=== PATIENT | male | born 1945 | race African-American/Black ===

== ENCOUNTER 2018-11-10 21:33 | Emergency (ER) | payer OTHER ==
[2018-11-10] MEDS ORDERED: MEPERIDINE HCL 25 MG/0.5 ML ONE (22:20)
[2018-11-10] MEDS ORDERED: LEVALBUTEROL 1.25 MG/3 ML NEB ONE (22:20)
[2018-11-10 22:53] LABS: Absolute Lymphocytes (CBC) 1.8 K/uL (0.7-4.9); Basophils % 0.3 % (0-1.3); Hematocrit 27.5 % (39.6-49.0); MPV 9.4 fL (7.6-11.3); RBC Red Blood Cell Count 2.97 M/uL (4.33-5.43)
[2018-11-10 23:06] LABS: BUN Blood Urea Nitrogen 50 mg/dL (7-18); Bicarbonate 28 mmol/L (21-32); Glucose Level 127 mg/dL (74-106); NT PRO-BNP 596 pg/mL (<450); Potassium 4.3 mmol/L (3.5-5.1); Sodium Level 140 mmol/L (136-145); Troponin (Emerg Dept Use Only) < 0.02 ng/mL (0.0-0.045)
--- NOTE | 2018-11-11 00:04 | ER ---
Nurse's Notes [facility] Name: Haja Fenton Age: 73 yrs Sex: Male : 1945 Arrival Date: 11/10/2018 Time: 21:36 Bed 14 Private MD: Diagnosis: Chest pain, unspecified;Pleurisy Presentation: 11/10 21:46 Presenting complaint: Patient states: chest pain started yesterday, pain in left chest dm5 area, 6/10 when resting, 10/10 when trying to stand up. pt denies nausea and vomiting. states that the pain almost brought the patient to his knees earlier when the patient went to stand up. Pt has had a cough for [address] Landaverde Sunday. Presenting complaint:. Transition of care: patient was not received from another setting of care. Onset of symptoms was November 09, 2018. Risk Assessment: Do you want to hurt yourself or someone else? Patient reports no desire to harm self or others. Initial Sepsis Screen: Does the patient meet any 2 criteria? No. Patient's initial sepsis screen is negative. Does the patient have a suspected source of infection? No. Patient's initial sepsis screen is negative. Care prior to arrival: None. 21:46 Method Of Arrival: Ambulatory dm5 21:46 Acuity: BERNADINE 2 dm5 Historical: - Allergies: 21:52 Sulfa (Sulfonamide Antibiotics); dm5 - Home Meds: 22:13 losartan 50 mg oral tab 1 tab 2 times per day [Active]; nifedipine 60 mg oral TbER 1 dm5 tab twice a day [Active]; hydralazine 100 mg oral tab 1 tab 3 times per day [Active]; omeprazole 20 mg Oral cpDR 1 cap 2 times per day [Active]; furosemide 80 mg Oral tab 1 tab 2 times per day [Active]; aspirin 81 mg Oral TbEC 1 tab once daily [Active]; alogliptin 6.25 mg oral tab 1 tab daily [Active]; terazosin 10 mg oral cap 1 cap twice a day [Active]; atorvastatin 20 mg oral tab 1 tab once daily [Active]; Vitamin D Oral 5000 unit daily [Active]; ferrous gluconate 325 mg (37 mg iron) oral tab daily [Active]; Phenergan Oral every 6 hours [Active]; amoxicillin 875 mg Oral tab 1 tab every 12 hours [Active]; - PMHx: 21:52 Hypertension; Diabetes - NIDDM; GERD; Hyperlipidemia; dm5 - PSHx: 21:52 None; dm5 - Immunization history:: Adult Immunizations up to date. - Social history:: Smoking status: Patient/guardian denies using tobacco. - Family history:: not pertinent. - Ebola Screening: : Patient negative for fever greater than or equal to 101.5 degrees Fahrenheit, and additional compatible Ebola Virus Disease symptoms Patient denies exposure to infectious person Patient denies travel to an Ebola-affected area in the 21 days before illness onset No symptoms or risks identified at this time. - Hospitalizations: : No recent hospitalization is reported. Screenin:10 Abuse screen: Denies threats or abuse. Denies injuries from another. Nutritional ca1 screening: No deficits noted. Tuberculosis screening: No symptoms or risk factors identified. Fall Risk IV access (20 points). Assessment: 22:10 General: Appears in no apparent distress. uncomfortable, Behavior is calm, cooperative, ca1 appropriate for age. Pain: Complains of pain in anterior aspect of left upper chest Pain does not radiate. Pain currently is 8 out of 10 on a pain scale. Quality of pain is described as sharp, stabbing, Pain began 1 day ago. Is intermittent, Aggravated by. Neuro: Level of Consciousness is awake, alert, obeys commands, Oriented to person, place, time, situation, Appropriate for age. Cardiovascular: Heart tones S1 S2 present Capillary refill < 3 seconds Patient's skin is warm and dry. Pulses are all present. Rhythm is sinus rhythm. Respiratory: Airway is patent Respiratory effort is even, unlabored, Respiratory pattern is regular, symmetrical, Breath sounds are clear bilaterally. Respiratory: Reports cough that is. GI: Abdomen is round non-distended, Bowel sounds present X 4 quads. Abd is soft and non tender X 4 quads. : No deficits noted. No signs and/or symptoms were reported regarding the genitourinary system. EENT: EENT: No deficits noted. No signs and/or symptoms were reported regarding the EENT system. Derm: Skin is intact, is healthy with good turgor, Skin is pink, warm \T\ dry. Musculoskeletal: Circulation, motion, and sensation intact. Capillary refill < 3 seconds, Range of motion: intact in all extremities. 23:20 Reassessment: Patient appears in no apparent distress at this time. Patient and/or ca1 family updated on plan of care and expected duration. Pain level reassessed. Patient is alert, oriented x 3, equal unlabored respirations, skin warm/dry/pink. 11/11 00:20 Reassessment: Patient appears in no apparent distress at this time. Patient and/or cc3 family updated on plan of care and expected duration. Pain level reassessed. Patient is alert, oriented x 3, equal unlabored respirations, skin warm/dry/pink. Dr. Adams discharged the patient home with prescription given. IV cannula removed and patient left ER vitally stable and ambulatory with his . No valuables left in the patient's room. Patient denies pain at this time. Patient states feeling better. Patient states symptoms have improved. Vital Signs: 11/10 21:52 BP 161 / 74; Pulse 67; Resp 20; Temp 99(TE); Pulse Ox 97% on R/A; Weight 104.33 kg; dm5 Height 6 ft. (182.88 cm); Pain 6/10; 23:20 BP 143 / 66; Pulse 57; Resp 15 S; Pulse Ox 94% on R/A; ca1 11/11 00:16 BP 145 / 69; Pulse 64; Resp 15 S; Pulse Ox 96% on R/A; Pain 0/10; cc3 11/10 21:52 Body Mass Index 31.19 (104.33 kg, 182.88 cm) dm5 ED Course: 11/10 21:36 Patient arrived in ED. cf2 21:49 Triage completed. dm5 21:52 Arm band placed on left wrist. Patient placed in an exam room. dm5 21:53 Kerry Sandoval, RN is Primary Nurse. ca1 21:53 Bc Adams MD is Attending Physician. rn 22:10 Patient has correct armband on for positive identification. Placed in gown. Bed in low ca1 position. Call light in reach. Side rails up X2. threat monitoring analyst on. Pulse ox on. NIBP on. Warm blanket given. Head of bed elevated. 22:11 No provider procedures requiring assistance completed. Inserted saline lock: 20 gauge ca1 in left antecubital area, using aseptic technique. Blood collected. Patient maintains SpO2 saturation greater than 95% on room air. 22:11 Initial lab(s) drawn, by me, sent to lab. First set of blood cultures drawn by me. ca1 22:30 EKG done, by ED staff, reviewed by Bc Adams MD. em1 11/11 00:20 IV discontinued, intact, bleeding controlled, No redness/swelling at site. Pressure cc3 dressing applied. 05:13 XRAY Chest Pa And Lat (2 Views) In Process Unspecified. EDMS Administered Medications: 11/10 22:13 Drug: Xopenex 1.25 mg Route: Inhalation; ca1 11/11 00:16 Follow up: Response: No adverse reaction; Marked relief of symptoms cc3 11/10 22:14 Drug: Demerol 25 mg {Note: RASS - 0.} Route: IVP; Site: left antecubital; ca1 11/11 00:16 Follow up: Response: No adverse reaction; Pain is decreased; RASS: Alert and Calm (0) cc3 Outcome: 00:01 Discharge ordered by . rn 00:20 Discharged to home ambulatory, with family. cc3 00:20 Condition: stable 00:20 Discharge instructions given to patient, family, Instructed on discharge instructions, follow up and referral plans. medication usage, Demonstrated understanding of instructions, follow-up care, medications, Prescriptions given X 1. 00:25 Patient left the ED. cc3 Signatures: Dispatcher [employer] EDMS Bambi Gutierrez, RN RN dm5 Bc Adams MD MD rn Martinez, Eric em1 Lea Wharton cc3 Kerry Sandoval RN RN ca1 Eugenio Louis cf2 Corrections: (The following items were deleted from the chart) 11/10 22:13 21:52 Home Meds: losartan oral oral; dm5 dm5 22:13 21:52 Home Meds: Nifedipine Oral; dm5 dm5 22:13 21:52 Home Meds: Hydralazine Oral; dm5 dm5
--- NOTE | 2018-11-11 00:06 | EDPHYS ---
Physician Documentation [facility] Name: Haja Fenton Age: 73 yrs Sex: Male : 1945 Arrival Date: 11/10/2018 Time: 21:36 Bed 14 Private MD: ED Physician Bc Adams HPI: 11/10 22:49 This 73 yrs old Black Male presents to ER via Ambulatory with complaints of Chest Pain. rn 22:49 The patient or guardian reports chest pain that is located primarily in the anterior rn chest wall, left. Onset: today. The pain does not radiate. Associated signs and symptoms: Pertinent positives: cough, Pertinent negatives: abdominal pain, palpitations, shortness of breath, syncope, vomiting. The chest pain is described as sharp, stabbing. Duration: The patient or guardian reports multiple episodes, that are intermittent. Modifying factors: The symptoms are alleviated by nothing. the symptoms are aggravated by cough, deep breath. Severity of pain: At its worst the pain was moderate in the emergency department the pain is unchanged. The patient has not experienced similar symptoms in the past. REports seen by pcp recently, given abx, states still coughing and today began with left sided sharp chest pain, no radiation, worse with deep breath, no hemoptysis. . Historical: - Allergies: 21:52 Sulfa (Sulfonamide Antibiotics); dm5 - Home Meds: 22:13 losartan 50 mg oral tab 1 tab 2 times per day [Active]; nifedipine 60 mg oral TbER 1 dm5 tab twice a day [Active]; hydralazine 100 mg oral tab 1 tab 3 times per day [Active]; omeprazole 20 mg Oral cpDR 1 cap 2 times per day [Active]; furosemide 80 mg Oral tab 1 tab 2 times per day [Active]; aspirin 81 mg Oral TbEC 1 tab once daily [Active]; alogliptin 6.25 mg oral tab 1 tab daily [Active]; terazosin 10 mg oral cap 1 cap twice a day [Active]; atorvastatin 20 mg oral tab 1 tab once daily [Active]; Vitamin D Oral 5000 unit daily [Active]; ferrous gluconate 325 mg (37 mg iron) oral tab daily [Active]; Phenergan Oral every 6 hours [Active]; amoxicillin 875 mg Oral tab 1 tab every 12 hours [Active]; - PMHx: 21:52 Hypertension; Diabetes - NIDDM; GERD; Hyperlipidemia; dm5 - PSHx: 21:52 None; dm5 - Immunization history:: Adult Immunizations up to date. - Social history:: Smoking status: Patient/guardian denies using tobacco. - Family history:: not pertinent. - Ebola Screening: : Patient negative for fever greater than or equal to 101.5 degrees Fahrenheit, and additional compatible Ebola Virus Disease symptoms Patient denies exposure to infectious person Patient denies travel to an Ebola-affected area in the 21 days before illness onset No symptoms or risks identified at this time. - Hospitalizations: : No recent hospitalization is reported. ROS: 22:49 Constitutional: Negative for fever, chills, and weight loss, Eyes: Negative for injury, rn pain, redness, and discharge, Neck: Negative for injury, pain, and swelling, Cardiovascular: + chest pain Respiratory: + cough and pleuritic chest pain Abdomen/GI: Negative for abdominal pain, nausea, vomiting, diarrhea, and constipation, MS/Extremity: Negative for injury and deformity, Skin: Negative for injury, rash, and discoloration, Neuro: Negative for headache, weakness, numbness, tingling, and seizure. Exam: 22:49 Constitutional: This is a well developed, well nourished patient who is awake, alert, rn and in no acute distress. Head/Face: Normocephalic, atraumatic. Eyes: Pupils equal round and reactive to light, extra-ocular motions intact. Lids and lashes normal. Conjunctiva and sclera are non-icteric and not injected. Cornea within normal limits. Periorbital areas with no swelling, redness, or edema. Cardiovascular: Regular rate and rhythm. No pulse deficits. Respiratory: Lungs have equal breath sounds bilaterally, no retractions, + splinting and diminished breath sounds left lung base Abdomen/GI: soft, non-tender MS/ Extremity: Pulses equal, no cyanosis. Neurovascular intact. Full, normal range of motion. Equal circumference. Neuro: Awake and alert, GCS 15, oriented to person, place, time, and situation. Cranial nerves II-XII grossly intact. Motor strength 5/5 in all extremities. Sensory grossly intact. Cerebellar exam normal. Normal gait. Vital Signs: 21:52 BP 161 / 74; Pulse 67; Resp 20; Temp 99(TE); Pulse Ox 97% on R/A; Weight 104.33 kg; dm5 Height 6 ft. (182.88 cm); Pain 6/10; 23:20 BP 143 / 66; Pulse 57; Resp 15 S; Pulse Ox 94% on R/A; ca1 11/11 00:16 BP 145 / 69; Pulse 64; Resp 15 S; Pulse Ox 96% on R/A; Pain 0/10; cc3 11/10 21:52 Body Mass Index 31.19 (104.33 kg, 182.88 cm) dm5 MDM: 11/10 21:53 Patient medically screened. rn 23:55 ED course: Family reports grandchildren with cough and illness, then got it, now rn patient go it. Seems respiratory, already on abx, may not be improving given likely viral illness. No PTX on CXR, chest pain likely pleuritic. . 23:59 Differential diagnosis: acute pericarditis, chest wall pain, costochondritis, pleurisy, rn pneumonia, pneumothorax. Data reviewed: vital signs, nurses notes, lab test result(s), EKG, radiologic studies, plain films, and as a result, I will discharge patient. Test interpretation: by ED physician or midlevel provider: ECG, plain radiologic studies, CXR neg for pneumothorax or acute infiltrate.. Counseling: I had a detailed discussion with the patient and/or guardian regarding: the historical points, exam findings, and any diagnostic results supporting the discharge/admit diagnosis, lab results, radiology results, the need for outpatient follow up, to return to the emergency department if symptoms worsen or persist or if there are any questions or concerns that arise at home. Response to treatment: the patient's symptoms have mildly improved after treatment, and as a result, I will discharge patient. Special discussion: Based on the patient's history, exam, and Dx evaluation, there is no indication for emergent intervention or inpatient Tx. It is understood by the patient/guardian that if the Sx's persist or worsen they need to return immediately for re-evaluation. I discussed with the patient/guardian in detail that at this point there is no indication for admission to the hospital. It is understood, however, that if the symptoms persist or worsen the patient needs to return immediately for re-evaluation. 11/10 22:06 Order name: CBC with Diff rn 11/10 22:06 Order name: Blood Culture Adult (2) rn 11/10 22:06 Order name: BMP rn 11/10 22:06 Order name: NT PRO-BNP rn 11/10 22:06 Order name: Troponin (emerg Dept Use Only) rn 11/10 22:06 Order name: Flu rn 11/10 22:06 Order name: XRAY Chest Pa And Lat (2 Views) rn 11/10 22:59 Order name: CBC with Automated Diff; Complete Time: 23:35 EDMS 11/10 23:03 Order name: Influenza Screen (A ; Complete Time: 23:35 EDMS 11/10 23:07 Order name: Basic Metabolic Panel; Complete Time: 23:35 EDMS 11/10 23:07 Order name: Troponin (Emerg Dept Use Only); Complete Time: 23:35 EDMS 11/10 23:07 Order name: NT PRO-BNP; Complete Time: 23:35 EDMS 11/10 22:06 Order name: IV Start; Complete Time: 22:34 rn 11/10 22:06 Order name: EKG; Complete Time: 22:09 11/10 22:06 Order name: Cardiac monitoring; Complete Time: 22:11 rn 11/10 22:06 Order name: EKG - Nurse/Tech; Complete Time: 22:29 rn 11/10 22:06 Order name: Labs collected and sent; Complete Time: 22:11 11/10 22:06 Order name: O2 Per Protocol; Complete Time: 22:11 11/10 22:06 Order name: O2 Sat Monitoring; Complete Time: 22:35 rn Administered Medications: 22:13 Drug: Xopenex 1.25 mg Route: Inhalation; ca1 11/11 00:16 Follow up: Response: No adverse reaction; Marked relief of symptoms cc3 11/10 22:14 Drug: Demerol 25 mg {Note: RASS - 0.} Route: IVP; Site: left antecubital; ca1 11/11 00:16 Follow up: Response: No adverse reaction; Pain is decreased; RASS: Alert and Calm (0) cc3 Disposition: 11/11/18 00:01 Discharged to Home. Impression: Chest pain, unspecified, Pleurisy. - Condition is Stable. - Discharge Instructions: Nonspecific Chest Pain, Pleurisy. - Prescriptions for Ultram 50 mg Oral Tablet - take 1 tablet by ORAL route every 6 hours As needed; 20 tablet. - Medication Reconciliation Form, Thank You Letter, Antibiotic Education, Prescription Opioid Use form. - Follow up: Private Physician; When: As needed; Reason: Recheck today's complaints, Re-evaluation by your physician. - Problem is new. - Symptoms have improved. Signatures: Dispatcher [employer] EDBambi Lindsay RN RN dm5 Bc Adams MD MD rn Cordel, Charlene cc3 Kerry Sandoval RN RN ca1 Corrections: (The following items were deleted from the chart) 11/10 22:13 21:52 Home Meds: losartan oral oral; dm5 dm5 22:13 21:52 Home Meds: Nifedipine Oral; dm5 dm5 22:13 21:52 Home Meds: Hydralazine Oral; dm5 dm5 11/11 00:25 00:01 11/11/2018 00:01 Discharged to Home. Impression: Chest pain, unspecified; cc3 Pleurisy. Condition is Stable. Forms are Medication Reconciliation Form, Thank You Letter, Antibiotic Education, Prescription Opioid Use. Follow up: Private Physician; When: As needed; Reason: Recheck today's complaints, Re-evaluation by your physician. Problem is new. Symptoms have improved. rn
[2018-11-11 00:58] VITALS: TEMP 99
[2018-11-11 01:00] VITALS: BP 143/66; O2SAT 94
--- NOTE | 2018-11-11 08:43 | RAD REPORT ---
EXAM DESCRIPTION: Chang Antonio (2 Views)11/10/2018 10:50 pm CLINICAL HISTORY: Chest pain COMPARISON: August 2017 FINDINGS: The lungs appear clear of acute infiltrate. The heart is mildly enlarged IMPRESSION: No acute abnormalities displayed
--- NOTE | 2018-11-11 11:33 | EKG ---
Test Date: 2018-11-10 Test Time: 22:22:12 Investigation Manager: MEASUREMENT RESULTS: Intervals: Rate: 68 CT: 162 QRSD: 92 QT: 404 QTc: 429 [place]: P: 48 CT: 162 QRS: -47 T: 32 INTERPRETIVE STATEMENTS: Sinus rhythm with occasional premature ventricular complexes Left anterior fascicular block Cannot rule out Inferior infarct, age undetermined Possible Anterior infarct, age undetermined Abnormal ECG Compared to ECG 02/16/2017 10:24:28 Ventricular premature complex(es) now present Left anterior fascicular block now present Fusion complex(es) no longer present Left-axis deviation no longer present Myocardial infarct finding still present Electronically Signed On 11-11-18 11:30:48 CDT by Eyad Todd
== END 2018-11-11 00:25 | disposition home or self-care (01) ==
LOC: ER 21:33
DX: R09.1 Pleurisy (principal); I10 Essential (primary) hypertension; E11.9 Type 2 diabetes mellitus without complications; E78.5 Hyperlipidemia, unspecified; Z79.82 Long term (current) use of aspirin; Z88.2 Allergy status to sulfonamides
CPT/HCPCS: 93005; 87040 ×2; 85025; 80048; 36415; 84484; 83880; 87804 ×2; 71046; 96374; 99285; J2175

== ENCOUNTER 2020-12-15 08:11 | Day surgery (SDC) | payer OTHER ==
[2020-12-15 08:31] VITALS: BP 144/37; TEMP 98.4; O2SAT 97; BMI 30.5
[2020-12-15 09:00] LABS: Hematocrit 21.7 % (39.6-49.0)
[2020-12-15] MEDS ORDERED: EPOETIN ALFA-EPBX 10,000 UNIT/ML VIAL ONE (09:31)
[2020-12-15 10:28] LABS: Ferritin 385.9 ng/mL (26-388); Folic Acid, (Folate) 8.4 ng/mL (3.1-17.5)
== END 2020-12-15 09:11 | disposition home or self-care (01) ==
LOC: DS 08:11
PROVIDERS: ATTEND Internal Medicine Nephrology
DX: N18.4 Chronic kidney disease, stage 4 (severe) (principal); D63.1 Anemia in chronic kidney disease
CPT/HCPCS: 36415; 85018; 85014; 82728; 82746; 82607; 83540; 84466; 96372; Q5106

== ENCOUNTER → 2021-01-24 | Day surgery (SDC) | payer OTHER ==
[~2021-01-24] MED LIST: EPOETIN ALFA-EPBX 10,000 UNIT/ML VIAL ONE
[2021-01-24 08:32] VITALS: BP 151/57; TEMP 97.4; O2SAT 99; BMI 30.5
== END ==
LOC: DS 07:59
PROVIDERS: ATTEND Internal Medicine Nephrology
DX: N18.4 Chronic kidney disease, stage 4 (severe) (principal); D63.1 Anemia in chronic kidney disease
CPT/HCPCS: 36415; 85018; 85014; 96372; Q5106

== ENCOUNTER 2021-02-23 07:59 | Day surgery (SDC) | payer OTHER ==
[2021-02-23 08:31] VITALS: BMI 30.5
[2021-02-23 08:32] VITALS: BP 152/62; TEMP 97.8; O2SAT 97
[2021-02-23 08:46] LABS: Hematocrit 23.9 % (39.6-49.0)
[2021-02-23] MEDS ORDERED: EPOETIN ALFA-EPBX 10,000 UNIT/ML VIAL ONE (08:51)
== END 2021-02-23 09:00 | disposition home or self-care (01) ==
LOC: DS 07:59
PROVIDERS: ATTEND Internal Medicine Nephrology
DX: N18.4 Chronic kidney disease, stage 4 (severe) (principal); D63.1 Anemia in chronic kidney disease
CPT/HCPCS: 36415; 85018; 85014; 96372; Q5106

== ENCOUNTER 2021-03-28 08:01 | Day surgery (SDC) | payer OTHER ==
[2021-03-28 08:22] VITALS: TEMP 97.6; O2SAT 99; BMI 30.5
[2021-03-28] MEDS ORDERED: EPOETIN ALFA-EPBX 10,000 UNIT/ML VIAL ONE (08:37)
[2021-03-28 08:49] VITALS: BP 162/65
== END 2021-03-28 08:47 | disposition home or self-care (01) ==
LOC: DS 08:01
PROVIDERS: ATTEND Internal Medicine Nephrology
DX: N18.4 Chronic kidney disease, stage 4 (severe) (principal); D63.1 Anemia in chronic kidney disease
CPT/HCPCS: 36415; 85018; 85014; 96372; Q5106

== ENCOUNTER 2021-04-11 07:29 | Day surgery (SDC) | payer OTHER ==
[2021-04-11 08:06] LABS: Hematocrit 22.9 % (39.6-49.0)
[2021-04-11] MEDS ORDERED: EPOETIN ALFA-EPBX 10,000 UNIT/ML VIAL ONE (08:26)
[2021-04-11 08:42] VITALS: O2SAT 99; BMI 30.5
[2021-04-25] MEDS ORDERED: EPOETIN ALFA-EPBX 10,000 UNIT/ML VIAL ONE (08:15)
[2021-04-25 08:22] VITALS: BP 171/61; TEMP 98.3
== END 2021-04-25 08:17 | disposition home or self-care (01) ==
LOC: DS 07:29
PROVIDERS: ATTEND Internal Medicine Nephrology
DX: N18.5 Chronic kidney disease, stage 5 (principal); D63.1 Anemia in chronic kidney disease
CPT/HCPCS: 36415 ×2; 85018 ×2; 85014 ×2; 96372 ×2; Q5106 ×2